=== PATIENT | female | born 1960 | race Hispanic/Latino ===

== ENCOUNTER 2017-10-22 14:46 | Emergency (ER) | payer SELFPAY ==
[2017-10-22] MEDS ORDERED: CLINDAMYCIN 600 MG/D5% WATER 50 ML IV ONE (15:29)
[2017-10-22] MEDS ORDERED: KETOROLAC TROMETHAMINE 15MG/ML ONE (16:04)
== END 2017-10-22 16:30 | disposition home or self-care (01) ==
LOC: EDH 14:46
DX: L03.011 Cellulitis of right finger (principal); Z90.710 Acquired absence of both cervix and uterus
CPT/HCPCS: 26010; 96365; 96375; 99284; J1885; J3490